=== PATIENT | female | born 1990 | race Caucasian/White ===

== ENCOUNTER 2017-06-27 13:08 | Inpatient (IN) | payer BC ==
[~2017-06-27] VITALS: Ht 157.5 cm; Wt 76.1 kg
[2017-06-27 13:42] VITALS: BP 120/78
[2017-06-27 14:09] LABS: HEMATOCRIT 34.6 % (34.6-47.8); HEMOGLOBIN 11.4 g/dL (11.7-16.4); WHITE BLOOD COUNT 14.4 x10^3/uL (3.4-10)
[2017-06-27 14:19] LABS: BLOOD UREA NITROGEN 6 mg/dL (7-18)
[2017-06-27 14:22] LABS: ASPARTATE AMINO TRANSFERASE 35 U/L (15-37)
[2017-06-27] MEDS ORDERED: OXYTOCIN 30U/ 0.9% NaCL 500ML 500 ML ONE (14:50)
[2017-06-27] MEDS ORDERED: NEWBORN KIT ONE (15:12)
[2017-06-27] MEDS ORDERED: METOCLOPRAMIDE 5 MG/ML, 2ML ONE ×2 (15:29→16:04)
[2017-06-27] MEDS ORDERED: SODIUM CITRATE/CITRIC ACID 30 ML UDC ONE ×2 (15:29→16:04)
[2017-06-27] MEDS ORDERED: EPHEDRINE 50 MG/ML, 1ML IVPush PRN (15:30)
[2017-06-27] MEDS ORDERED: PROMETHAZINE 25 MG/ML, 1ML IV PRN (15:30)
[2017-06-27] MEDS ORDERED: OXYcodone 5 MG/5 ML ORAL.SOL UDC PO PRN (15:30)
[2017-06-27] MEDS ORDERED: ONDANSETRON 2MG/ML, 2ML IVPush PRN (15:30)
[2017-06-27] MEDS ORDERED: LABETALOL 5MG/ML, 20ML IV PRN (15:30)
[2017-06-27] MEDS ORDERED: HYDROmorphone 1 MG/ML, 1ML IV PRN (15:30)
[2017-06-27] MEDS ORDERED: MIDAZOLAM 1 MG/ML, 2ML IV PRN (15:30)
[2017-06-27] MEDS ORDERED: FENTANYL PF 100 MCG/2ML IV PRN (15:30)
[2017-06-27] MEDS ORDERED: HYDROcodone/APAP 7.5-325MG/15ML UDC PO PRN (15:30)
[2017-06-27] MEDS ORDERED: hydrALAzine 20 MG/ML, 1ML IV PRN (15:30)
[2017-06-27] MEDS ORDERED: ALBUTEROL SULFATE 2.5 MG/3 ML NPPB PRN (15:30)
[2017-06-27] MEDS ORDERED: MEPERIDINE/PF 25MG/0.5ML IVPush PRN (15:30)
[2017-06-27] MEDS ORDERED: FENTANYL PF 100 MCG/2ML ONE ×2 (15:41→16:04)
[2017-06-27] MEDS ORDERED: METOCLOPRAMIDE 5 MG/ML, 2ML IVPush ONE (16:00)
[2017-06-27] MEDS ORDERED: SODIUM CITRATE/CITRIC ACID 30 ML UDC PO ONE (16:00)
[2017-06-27] MEDS ORDERED: MIDAZOLAM 1 MG/ML, 2ML ONE (16:01)
[2017-06-27] MEDS ORDERED: ONDANSETRON 2MG/ML, 2ML ONE ×2 (16:04→19:45)
[2017-06-27] MEDS ORDERED: OXYTOCIN 10 UNITS/ML, 1ML ONE (16:04)
[2017-06-27] MEDS ORDERED: CEFAZOLIN 1,000 MG ONE (16:04)
[2017-06-27] MEDS ORDERED: DEXAMETHASONE 4 MG/ML, 1ML ONE (16:04)
[2017-06-27] MEDS ORDERED: EPHEDRINE 50 MG/ML, 1ML ONE (16:04)
[2017-06-27] MEDS: LACTATED RINGERS 1,000 ML IV SCH (16:05)
[2017-06-27] MEDS: OXYTOCIN 30U/ 0.9% NaCL 500ML 500 ML IV SCH (16:05)
[2017-06-27] MEDS ORDERED: CALCIUM GLUCONATE 0.46MEQ/1ML IVPush ONE (16:30)
[2017-06-27] MEDS ORDERED: MISOPROSTOL 200 MCG TABLET PR PRN (16:30)
[2017-06-27] MEDS ORDERED: ACETAMINOPHEN 325 MG TABLET PO PRN ×2 (16:30)
[2017-06-27] MEDS ORDERED: MEASLES,MUMPS&RUBELLA VACC/PF 0.5 ML SQ-VACC PRN (16:30)
[2017-06-27] MEDS ORDERED: morphine SULFATE 10 MG/ML, 1ML IVPush PRN (16:30)
[2017-06-27] MEDS ORDERED: ONDANSETRON 2MG/ML, 2ML IV PRN (16:30)
[2017-06-27] MEDS ORDERED: MAGNESIUM SULFATE PMX 4GM/100M 100 ML IVPB ONE (16:30)
[2017-06-27] MEDS ORDERED: RHOGAM FROM BLOOD BANK 1 NOTE EA IM/IV ONE (16:30)
[2017-06-27] MEDS ORDERED: CALCIUM CARBONATE 500 MG TAB.CHEW PO PRN (16:30)
[2017-06-27] MEDS ORDERED: MAGNESIUM SULF. PMX 20GM/500ML 500 ML IV ONE (17:06)
[2017-06-27] MEDS ORDERED: MAGNESIUM SULFATE PMX 4GM/100M 100 ML ONE (17:07)
[2017-06-27] MEDS: MAGNESIUM SULF. PMX 20GM/500ML 500 ML IV PRN (17:45)
[2017-06-27] MEDS ORDERED: MORPHINE SULFATE 4 MG/ML, 1ML ONE (18:30)
[2017-06-27] MEDS ORDERED: morphine SULFATE 10 MG/ML, 1ML ONE (18:33)
[2017-06-27] MEDS: morphine SULFATE 10 MG/ML, 1ML IVPush PRN ×2 (18:34→19:10)
[2017-06-27] MEDS ORDERED: OXYcodone/APAP 5/325MG TABLET ONE ×3 (19:45→23:07)
[2017-06-27] MEDS: OXYcodone/APAP 5/325MG TABLET PO PRN ×3 (19:51→23:27)
[2017-06-27] MEDS ORDERED: SIMETHICONE 80 MG CHEW TAB ONE (23:07)
[2017-06-27] MEDS: SIMETHICONE 80 MG CHEW TAB PO PRN (23:28)
[2017-06-28] MEDS: LACTATED RINGERS 1,000 ML IV SCH ×7 (00:05→22:05)
[2017-06-28 01:21] LABS: HEMATOCRIT 31.7 % (34.6-47.8); HEMOGLOBIN 10.4 g/dL (11.7-16.4)
[2017-06-28 01:34] LABS: ASPARTATE AMINO TRANSFERASE 42 U/L (15-37); BLOOD UREA NITROGEN 5 mg/dL (7-18)
[2017-06-28] MEDS ORDERED: MAGNESIUM SULF. PMX 20GM/500ML 500 ML IV ONE ×2 (01:58→13:42)
[2017-06-28] MEDS: OXYTOCIN 30U/ 0.9% NaCL 500ML 500 ML IV SCH ×3 (02:05→22:05)
[2017-06-28] MEDS: MAGNESIUM SULF. PMX 20GM/500ML 500 ML IV PRN ×2 (02:05→13:47)
[2017-06-28] MEDS ORDERED: OXYcodone/APAP 5/325MG TABLET ONE ×6 (04:01→16:44)
[2017-06-28] MEDS: OXYcodone/APAP 5/325MG TABLET PO PRN ×6 (04:04→20:39)
[2017-06-28] MEDS ORDERED: PRENATAL VIT/IRON/FA 1 EACH TABLET ONE (09:40)
[2017-06-28] MEDS: PRENATAL VIT/IRON/FA 1 EACH TABLET PO SCH (09:46)
[2017-06-28 09:56] VITALS: BP 119/63
[2017-06-28] MEDS ORDERED: SIMETHICONE 80 MG CHEW TAB ONE (16:44)
[2017-06-28] MEDS: SIMETHICONE 80 MG CHEW TAB PO PRN (16:46)
[2017-06-28 18:04] VITALS: BP 122/81
[2017-06-28 19:35] VITALS: BP 124/82
[2017-06-28] MEDS: DOCUSATE 100 MG CAPSULE PO PRN (20:39)
[2017-06-29] MEDS: LACTATED RINGERS 1,000 ML IV SCH ×4 (00:05→16:05)
[2017-06-29] MEDS: OXYcodone/APAP 5/325MG TABLET PO PRN ×7 (00:38→21:51)
[2017-06-29 04:45] VITALS: BP 116/76
[2017-06-29 08:00] VITALS: BP 118/72
[2017-06-29] MEDS: OXYTOCIN 30U/ 0.9% NaCL 500ML 500 ML IV SCH (08:05)
[2017-06-29] MEDS: PRENATAL VIT/IRON/FA 1 EACH TABLET PO SCH (09:00)
[2017-06-29 12:00] VITALS: BP 116/78
[2017-06-29] MEDS: IBUPROFEN 600 MG TABLET PO PRN (12:57)
[2017-06-29 16:00] VITALS: BP 137/87
[2017-06-29 19:02] VITALS: BP 126/83
[2017-06-29 19:20] VITALS: BP 143/88
[2017-06-29] MEDS: DOCUSATE 100 MG CAPSULE PO PRN (21:51)
[2017-06-30] MEDS: IBUPROFEN 600 MG TABLET PO PRN ×3 (02:55→22:30)
[2017-06-30] MEDS: OXYcodone/APAP 5/325MG TABLET PO PRN ×5 (02:56→22:31)
[2017-06-30 08:30] VITALS: BP 132/90
[2017-06-30] MEDS: PRENATAL VIT/IRON/FA 1 EACH TABLET PO SCH (08:37)
[2017-06-30] MEDS: DOCUSATE 100 MG CAPSULE PO PRN ×2 (08:37→22:30)
[2017-06-30 20:05] VITALS: BP 122/88
[2017-06-30 23:51] VITALS: BP 120/78
[2017-07-01] MEDS: OXYcodone/APAP 5/325MG TABLET PO PRN ×4 (03:45→16:47)
[2017-07-01 07:30] VITALS: BP 132/91
[2017-07-01] MEDS: PRENATAL VIT/IRON/FA 1 EACH TABLET PO SCH (08:11)
[2017-07-01] MEDS: DOCUSATE 100 MG CAPSULE PO PRN (08:11)
[2017-07-01] MEDS ORDERED: OXYC-302 PO (10:53)
[2017-07-01] MEDS ORDERED: IBUP-1222 PO (10:54)
[2017-07-01] MEDS ORDERED: DOCU-131 PO (10:55)
[2017-07-01] MEDS: IBUPROFEN 600 MG TABLET PO PRN (12:23)
== END 2017-07-01 17:15 | disposition home or self-care (01) | DRG 766 ==
LOC: LDOP 13:08 → LDIP 14:40 → 2NW 06-28 17:17
PROVIDERS: ADMIT Obstetrics & Gynecology; ATTEND Obstetrics & Gynecology
PROC: 10D00Z1 Extraction of Products of Conception, Low, Open Approach (ICD-10-PCS; principal; 2017-06-27)
PROC: 30233S1 Transfusion of Nonautologous Globulin into Peripheral Vein, Percutaneous Approach (ICD-10-PCS; 2017-06-28)
DX: O42.913 Preterm premature rupture of membranes, unspecified as to length of time between rupture and onset of labor, third trimester (principal); O21.0 Mild hyperemesis gravidarum; Z37.0 Single live birth; O32.1XX0 Maternal care for breech presentation, not applicable or unspecified; O99.820 Streptococcus B carrier state complicating pregnancy; O13.4 Gestational [pregnancy-induced] hypertension without significant proteinuria, complicating childbirth; Z3A.36 36 weeks gestation of pregnancy; Z88.5 Allergy status to narcotic agent; Z88.8 Allergy status to other drugs, medicaments and biological substances; Z91.040 Latex allergy status
CPT/HCPCS: 36415; 80053; 81001; 82248; 82803; 83735; 84550; 85025; 85461; 86850; 86900; 89060; J0610; J0690; J1100; J2250; J2405; J2790; J3010; J2270; J2590; J2765; J3475; J7120; Q0114